=== PATIENT | female | born 1950 | race Caucasian/White ===

== ENCOUNTER → 2016-11-12 | Outpatient (REF) ==
[~2016-11-12] MED LIST: ALDACTONE PO; ANTIVERT 25MG25 MG PO; BETAPACE 80MG80 MG PO; CENTRUM SILVER1 TA2 PO; COENZYME Q-1010 MG PO; COENZYME Q-10200 M1 PO; COUMADIN 1MG1 MG/TAB PO; COUMADIN 22.5 MG/TAB PO; CRESTOR 10MG10 MG PO; DEMADEX 20MG20 M1 PO; DEMADEX 20MG20 MG PO; DIGOXIN0.25 MG PO; FISH OIL CONC1000 MG PO; FLAX OIL1000 MG; FLAXSEED OIL1000 MG PO; FLUOROURACIL TOP; K-DUR 2020 MEQ PO; KLOR-CON M2020 MEQ PO; MVI; OMEGA-3 FISH1200 MG PO; POTASSIUM CHLO10 ME2 PO; PRILOSEC10 MG PO; PROBIOTIC FORMU1 CAP PO; PROZAC 20MG20 MG PO; SYNTHROID 0.10.15 MG PO; TOPROL XL 25MG25 MG PO; TOPROL XL25 MG PO; VENOFER IM; VITAMIN D50000 I2 PO; ZOFRAN ODT4 MG PO; arimidex PO
== END ==
LOC: ZLAB.WCH 15:01
DX: Z01.89 Encounter for other specified special examinations (principal)